=== PATIENT | female | born 1955 | race Caucasian/White ===

== ENCOUNTER → 2019-12-07 15:39 | Outpatient (BNVA) | payer MEDICARE, MEDICAID, SELFPAY | PROVIDERS: Family Provider Family Medicine; PCP Family Medicine; Visit Provider Nurse Practitioner Family | DX: M25.562 Pain in left knee (principal) | CPT/HCPCS: 73562 ==

== ENCOUNTER 2020-04-04 12:27 | Outpatient (CLI) | payer MEDICARE, MEDICAID, SELFPAY ==
--- NOTE | 2020-04-04 12:37 | MR_ITS ---
WS: [id number] MRI LEFT KNEE HISTORY: PAIN COMPARISON: Radiographs 12/07/2019. Anterior cruciate ligament: Intact. Posterior cruciate ligament: Intact. Medial collateral ligament: Fluid like signal on both sides of the distal MCL consistent with moderat e sprain. No full-thickness tear. Posterior lateral corner structures: Intact. Medial menisci: Fraying along the articular surfaces. There is blunting and abnormal signal towards t he meniscal root at the free edge. Partial extrusion of the anterior horn. Lateral meniscus: Blunting of the free edge with an abnormal signal consistent with a torn meniscus. Extensor mechanism: Distal quadriceps tendon and patellar tendons are intact. Fluid and soft tissue: There is a moderate joint effusion. Suprapatellar effusion with fluid extendin g around the posterior femoral condyles. Moderate Faust's cyst. Osseous and articular structures: Patellofemoral compartment: Mild joint space narrowing with preservation of the cartilage. Medial compartment: Moderate narrowing of the medial compartment. Moderate loss of cartilage with ost eophytes extending from the medial tibial plateau and femoral condyle. There is a small amount of mar row edema in the medial tibial plateau and the femoral condyle. Lateral compartment: Mild narrowing of the lateral compartment. There is a cartilage defect in the adeline int space involving the femoral cartilage. This is at the site of the meniscal signal abnormality als o. MR/MR knee LT wo con* [id number] IMPRESSION: 1. Moderate MCL sprain with adjacent fluid. There is also adjacent marrow bentley a in the femoral condyle and tibial plateau with meniscal extrusion. 2. Moderate joint effusion and Faust's cyst. 3. Abnormal signal blunting involving the free edge is a posterior menisci. 4. Significant loss of cartilage in the medial knee with a focal cartilage def ect in the lateral femoral condyle.
== END 2020-04-04 12:28 | disposition home or self-care (01) ==
LOC: RADWPI 12:34
PROVIDERS: Family Provider Family Medicine; PCP Family Medicine; Visit Provider Orthopaedic Surgery
DX: M25.562 Pain in left knee (principal); S83.412A Sprain of medial collateral ligament of left knee, initial encounter; X58.XXXA Exposure to other specified factors, initial encounter; M71.22 Synovial cyst of popliteal space [Baker], left knee; M25.462 Effusion, left knee
CPT/HCPCS: 73721

== ENCOUNTER 2020-04-23 06:00 | Outpatient (RCR) | payer MEDICARE, MEDICAID, SELFPAY | END 2020-04-30 23:59 | disposition home or self-care (01) | LOC: GPT 06:00 | PROVIDERS: PCP Family Medicine; Referring Provider Orthopaedic Surgery; Visit Provider Orthopaedic Surgery | DX: M17.12 Unilateral primary osteoarthritis, left knee (principal) | CPT/HCPCS: 97032; 97110; 97161; 97530 ==

== ENCOUNTER 2020-05-01 06:00 | Outpatient (RCR) | payer MEDICARE, MEDICAID, SELFPAY | END 2020-05-31 23:59 | disposition home or self-care (01) | LOC: GPT 06:00 | PROVIDERS: PCP Family Medicine; Referring Provider Orthopaedic Surgery; Visit Provider Orthopaedic Surgery | DX: M17.12 Unilateral primary osteoarthritis, left knee (principal) | CPT/HCPCS: 97032; 97110; 97116; 97530; G0283 ==

== ENCOUNTER → 2021-02-11 16:07 | Outpatient (BNVA) | payer MEDICARE, MEDICAID, SELFPAY | PROVIDERS: PCP Family Medicine; Visit Provider Orthopaedic Surgery | DX: Z01.812 Encounter for preprocedural laboratory examination (principal); Z20.822 Contact with and (suspected) exposure to COVID-19 | CPT/HCPCS: 87635 ==

== ENCOUNTER 2021-02-17 09:21 | Observation (INO) | payer MEDICARE, MEDICAID, SELFPAY ==
[2021-01-31 12:51] VITALS: BMI 24.1
--- NOTE | 2021-01-31 13:27 | ANES.PREANE2 ---
Pre-Anesthetic Assessment Pre-Anesthetic Assessment: Height/Weight: Height 1.55 m Weight 58.06 kg Preop Diagnosis: Osteoarthritis left knee Proposed Procedure: Operation Date: 02/17/21 07:00 Proposed Procedures p left total knee arthroplasty 75415 m17.12(Left) - Migel Wilkins MD Familial anesthetic complications: nonne Social: Social History: No alcohol and No tobacco Comment: former smoker Exam: Pre-Anes Outpt Exam: alert, oriented x 3, clear to auscultation bilaterally and regular rate & rhythm Airway: Cervical ROM: WNL MP: 3 Dentition: False Anesthetic Plan: ASA status: 1 Anesthesia: MAC and Regional (specify below) (spinal + adductor) Risk of > 500 ml blood loss (7ml/kg in children): No PFSH Anesthesia PFSH: Social History Smoking and tobacco status: former smoker Quit status (tobacco): has quit using tobacco Year quit tobacco: 2018 Alcohol intake: never Data Anesthesia Cardiac Studies: No Data to Display
[2021-02-17] VITALS (15 sets, daily range): BP systolic 107–151; BP diastolic 68–94; PULSE 58–85; RESP 14–19; TEMP 36.3–37.1; O2SAT 90–99
[2021-02-17] MEDS: sodium chloride 0.9% 1,000 ML 30 ML IV (06:07)
[2021-02-17] MEDS: acetaminophen 500 mg Tablet 1000 MG PO ×3 (06:08→21:24)
--- NOTE | 2021-02-17 06:30 | P.ANESUD_ITS ---
Pre-Anesthetic Update Pre-Anesthetic Assessment: Date of Surgery/Procedure: 02/17/21 Preop Sandrine gnosis: Osteoarthritis left knee Proposed Procedure: Operation Date: 02/17/21 07:00 Proposed Procedures p left total knee arthroplasty 25824 m17.12(Left) - Migel Wilkins MD Any changes to Pre-Anesthetic Assessment?: No Last Intake: Intake Last Liquid Date 02/16/21 Last Liquid Time 23:00 Last Solid Date 02/16/21 Last Solid Time 23:00 Vitals: Temperature 97.8 F 02/17/21 05:53 Temperature Source Temporal Artery S can 02/17/21 05:53 Pulse Rate 75 02/17/21 05:53 Respiratory Rate 16 02/17/21 05:53 Blood Pressure 151/94 02/17/21 05:53 Blood Pressure Ronel n 113 02/17/21 05:53 Pulse Oximetry 96 02/17/21 05:53 Oxygen Delivery Me thod 02/17/21 05:53 Exam: Pre-Anes Outpt Exam: alert, oriented x 3, clear to auscultation bilaterally and regular rate & rhythm Other Pertinent Information: Other Pertinent Information: GA with adductor. Cardiac Studies: No Data to Display
[2021-02-17] MEDS: ketorolac 30 mg/mL INJ PO (07:12)
[2021-02-17] MEDS: tranexamic acid 1,000 mg/10mL SDV 1000 MG IRRIGATION (07:12)
--- NOTE | 2021-02-17 07:13 | P.HP_ITS ---
Same Day Surgery H&P Indication for Procedure/HPI DATE OF PROCEDURE: February 17, 2021 CHIEF COMPLAINT/INDICATIONFOR SURGICAL PROCEDURE: Osteoarthritis left knee here for total knee arthroplasty PREOP DIAGNOSIS: Osteoarthritis left knee PLANNED PROCEDRUE: Operation Date: 02/17/21 07:00 Proposed Procedures p left total knee arthroplasty 18579 m17.12(Left) - Migel Wilkins MD Medications/Allergies* Home Medications Medication Instructions Recorded Confirmed Type acetaminophen [Tylenol] 325 mg PO QID PRN 01/31/21 02/17/21 History Allergies/Adverse Reactions Allergy/AdvReac Type Severity Reaction Status Date / Time codeine Allergy ADR-Vomitin Verified 01/07/21 13:15 g Current Medications: Generic Name Dose Route Start Last Admin Trade Name Freq PRN Reason Stop Dose Admin Sodium Chloride 1,000 mls @ 30 mls/hr 02/17/21 05:45 02/17/21 06:07 Sodium Chloride 0.9% IV 02/18/21 05:44 30 mls/hr .Q24H MARCIAL Administration Pertinent History/Comorbid Conditions* Social History Smoking and tobacco status: former smoker Quit status (tobacco): has quit using tobacco Year quit tobacco: 2018 Alcohol intake: never Pertinent Exam Findings alert, oriented x 3, clear to auscultation bilaterally, regular rate & rhythm and operative site marked Recommendations Surgery/Procedure today Coding Level of Care Code Acute Transfer Controller for Shira Delgado
--- NOTE | 2021-02-17 07:33 | ANES.PROC ---
Anesthesia Procedures Procedure/Date: 02/17/21 Nerve Block ^: Nerve Block 1: Main Anesthesia: general anesthesia Time Out Performed: Yes Consent: requested by attending/covering physician, from patient, risks and benefits reviewed and patient agrees to proceed Nerve block location: adductor canal (left) Anesthesia monitors applied: pulse oximetry, EKG, BP cuff and oxygen Nerve block position: supine Anesthetic Used: ropivicaine 0.5% Amount of anesthesia used (mL): 20 Nerve Stimulator Used?: No Interscalene/Femoral BLK: 4 stimuplex 21 g needle used for position and inplane approach Injection: neg aspiration of heme Patient Tolerated Procedure: well Complications: none
[2021-02-17] MEDS: EPINEPHrine 1 mg/mL INJ XX (07:42)
[2021-02-17] MEDS: ketorolac 30 mg/mL INJ XX (07:42)
[2021-02-17] MEDS: EPINEPHrine 1 mg/mL INJ (08:20)
--- NOTE | 2021-02-17 08:52 | PM.OP ---
Operative Report Date of procedure: February 17, 2021 Pre-op Diagnosis: Osteoarthritis left knee Post-op diagnosis: same Post-op Findings: Same Procedure Done: Left total knee arthroplasty Implants: Srini total knee arthroplasty components were used includin) Size 2 triathalon cruciate retaining femoral component 2) Size 3 Tritanium tibial component 3) Size 3/13 mm thickness CR tibial bearing insert Pathology: none sent Surgeon: Migel Wilkins Anesthesia: General and Nerve Block (Adductor elbow) Estimated blood loss (mL): 200 Complications: None Findings: Patient had eburnated bone over the medial femoral condyle and medial tibial plateau Condition: stable Disposition: PACU Procedure: The patient was taken to the operating room. Patient was given 1 g of tranexamic acid . The above anesthesia provided by the anesthesia service. A timeout was performed. The patient was prepped and draped in the usual fashion with the lower extremity exposed. A anterior incision was made, midline, from a point proximal to the patella to the distal tibial tubercle. The knee was entered through a medial parapatellar approach. The patella could be displaced laterally and the knee flexed. The patellar fat pad was resected to provide better visibility. Retractors were placed medially and laterally adjacent to the tibial plateau. The femoral canal was drilled in line with the longitudinal axis of the femur. Intramedullary femoral guide for used to make a distal femoral cut in 5 degrees of valgus, resecting 8 mm from the more prominent condyle. Next the extra medullary tibial guide was placed in alignment with the longitudinal axis of the tibia. The cutting guides were set to remove just over 9 mm from the high tibial plateau. The proximal tibia was then cut. The femoral measuring guide was then placed over the distal femur. Rotation was verified checking the relationship of the guide to the condyle and the trochlear groove. The femur was measured and cut for the desired femoral component. The desired tibial baseplate was then chosen. A trial reduction with the femur tibial baseplate and polyethylene was done, assuring that the knee was stable throughout full motion. Ligament balancing involve release of nothing more than the deep medial collateral ligament.The tibia was prepared for the tibial baseplate. Patella revealed no significant chondromalacia and articulated well with the femur through range of motion and was not resurface. All surfaces were cleaned with pulsatile lavage. The femur tibia were then press-fit into place. The posterior capsule and collateral ligaments were then injected with a solution of 100 mL of 0.2% ropivacaine, 1 mL of a 1:1000 epinephrine solution, and 30 mg of Toradol. Final polyethylene component was then snapped into place into the tibia. 2 grams of tranexamic acid were applied to the wound. The tourniquet was deflated. The tranxanemic acid was left contact with the knee for 5 minutes before the knee was irrigated with saline. The extensor retinaculum was closed with a running 1 Stratafix.. The subcutaneous tissues were closed with 2-0 Vicryl and the skin was closed with a running 3-0 Stratafix. The wound was covered with a Dermabond Prinio dressing. It was covered with 4xrs and a compressive Tubigauae was applied. The patient was taken to recovery room in stable condition.
--- NOTE | 2021-02-17 08:58 | XRR_ITS ---
PROCEDURE INFORMATION: Exam: XR Left Knee Exam date and time: 02/17/2021 9:02 AM Age: 65 years old Clinical indication: Device placement; Joint replacement hardware; Prior surgery; Surgery date: Post-operative (0-2 days); Additional info: Left total knee arthroplasty TECHNIQUE: Imaging protocol: XR Left knee. Views: 1 or 2 views. COMPARISON: MR knee LT wo con* [id number] 04/04/2020 12:33 PM FINDINGS: Bones/joints: No fracture or dislocation. The patient is status post left total knee arthroplasty. No evidence of hardware related complication. Soft tissues: Expected postoperative soft tissue changes noted. XR/XR knee LT 1-2V [id number] IMPRESSION: Status post left total knee arthroplasty, without evidence of hardware related complication.
--- NOTE | 2021-02-17 10:01 | SUR.PHASEI ---
0927 pt sleeps without complaint awaes to voice , pt shakes head no to pain and nausea questions pt shakes head yes to being cold, warm blankets to pt , pt to floor per bed after x rays done, vss report called to floor.
[2021-02-17] MEDS: CELEcoxib 200 mg Capsule PO ×2 (11:25→21:24)
[2021-02-17] MEDS: gabapentin 300 mg Capsule PO ×2 (11:25→17:49)
[2021-02-17] MEDS: aspirin 325 mg EC Tablet PO (11:25)
[2021-02-17] MEDS: sodium chloride 0.9% 1,000 ML 100 ML IV (11:26)
--- NOTE | 2021-02-17 15:41 | ANE.PACU2 ---
Inpatient post-anesthesia follow up: Airway intact: Yes Vital signs: Temperature 98.7 F Pulse Rate 71 Respiratory Rate 17 Blood Pressure 128/86 Pulse Oximetry 94 Oxygen Delivery Me thod Room Air Oxygen Flow Rate 3 Fraction of Inspir ed Oxygen Hydration adequate: Yes Nausea and vomiting: No Pain level: 3 Mental status: Baseline
[2021-02-18] VITALS: BP 97/60; PULSE 74; RESP 16; TEMP 37.9; O2SAT 94
[2021-02-18] MEDS: sodium chloride 0.9% 1,000 ML 100 ML IV (02:33)
[2021-02-18 04:00] VITALS: BP 99/58; PULSE 66; RESP 17; TEMP 37.2; O2SAT 92
[2021-02-18] MEDS: acetaminophen 500 mg Tablet 1000 MG PO ×2 (06:31→14:47)
[2021-02-18 07:22] LABS: Hemoglobin 10.4 g/dL (11.5-15.3)
[2021-02-18 08:00] VITALS: BP 110/65; PULSE 56; RESP 18; TEMP 37.1; O2SAT 94
[2021-02-18 09:15] VITALS: RESP 18
[2021-02-18] MEDS: oxyCODONE 5 mg IR Tab/Cap PO (09:15)
[2021-02-18] MEDS: aspirin 325 mg EC Tablet PO (09:16)
[2021-02-18] MEDS: gabapentin 300 mg Capsule PO (09:16)
[2021-02-18] MEDS: CELEcoxib 200 mg Capsule PO (09:16)
[2021-02-18 11:45] VITALS: BP 134/78; PULSE 64; RESP 18; TEMP 37; O2SAT 94
--- NOTE | 2021-02-18 13:06 | P.DS_ITS ---
Discharge Providers Date of Admission: 02/17/21 09:21 Date of Discharge: February 18, 2021 Attending Provider at Admission: Migel Wilkins MD Attending Provider at Discharge: Migel Wilkins MD Primary Care Provider: Alexis Good DO Diagnoses at Discharge Discharge Diagnosis (1) Status post left knee replacement: Status: Acute (2) Osteoarthritis of left knee: Status: Resolved Reason for Visit Reason for Visit: left total knee arthroplasty 55728 Hospital Course Hospital Course The patient was admitted for elective left total knee arthroplasty. Postoperatively she did very well. By the first postoperative day she was independent with her walker. She was managed with aspirin and foot pumps for DVT prophylaxis. She remained hemodynamically stable. Her incision was clean and free of drainage. Physical Exam Narrative: EXAM NARRATIVE: On the day of discharge his knee incision was clean. They had no drainage. There is minimal swelling in the thigh and knee and the calf. No distal neurovascular deficits were noted Discharge Data Data Completed and Pending: Completed Studies During Hospitalization Category Date Time Status XR knee LT 1-2V 7 [id number] Routine Exams 02/17/21 08:58 Completed Labs from last 24 hours 02/18/21 07:16 Hgb 10.4 L Vitals: Last Vital Signs Temp 98.6 F 02/18/21 11:45 Pulse 64 02/18/21 11:45 Resp 18 02/18/21 11:45 BP 134/78 02/18/21 11:45 Pulse Ox 94 02/18/21 11:45 Discharge Plan Discharge Patient Disposition: Home Condition: Stable Prescriptions: New oxycodone 5 mg Tablet 5 mg PO Q4H PRN (Reason: Moderate Pain) 7 Days Qty: 40 RF: 0 aspirin 325 mg Tablet,Delayed Release (Dr/Ec) 325 mg PO DAILY 30 Days Qty: 30 RF: 0 acetaminophen 500 mg Tablet 1,000 mg PO Q8H 14 Days Qty: 84 RF: 0 celecoxib 200 mg Capsule 200 mg PO Q12H 14 Days Qty: 28 RF: 0 gabapentin 300 mg Capsule 300 mg PO BID 7 Days Qty: 14 RF: 0 No Action acetaminophen [Tylenol] 325 mg Capsule 325 mg PO QID PRN (Reason: Pain) RF: 0 Discharge Orders: Discharge Order (Routine); Ordered 02/18/21 Ordered By: Migel Wilkins Other Ambulatory Orders: DME: Walker (Order) Location: None Selected Ordered By: Migel Wilkins Referrals: [facility] [place] Home Care ([facility]) [Outside] Migel Wilkins MD [Physician] - 03/04/21 10:45 am Discharge Diet: Advance as tolerated Discharge Activity: Limit activity as instructed Patient Instructions: Aspirin (By mouth), Gabapentin (By mouth), Oxycodone, Rapid Release (By mouth), Celecoxib (By mouth), Total Knee Replacement (DC), Opioid Safety Activity Restrictions/Additional Instructions: Okay to shower Keep Tubigauze sleeve in place for swelling. Okay to remove for hygiene. Apply FirstIce up to 20 min/hr for pain and swelling Take Celebrex twice a day for the next 15 days for pain , discontinue other anti-inflammatories Take Neurontin twice a day for 7 days. Take Tylenol 500mg (1-2 tabs) as needed 3 times a day for mild pain take oxycodone for breakthrough pain. Exercises per physical therapy. May weight-bear as tolerated on total knee arthroplasty Discharge Attestations Time Spent in Discharge Care*: other Quality Metrics Clinical Quality Measures During this hospital stay, did patient experience: None Coding Level of Care Code Acute [facility] DC note Diagnoses Status post left knee replacement Z96.652 Osteoarthritis of left knee M17.12
--- NOTE | 2021-02-18 15:33 | PC.NURSE ---
pt given discharge instructions, iv removed, and all questions answered. pt was informed on how to contact nurse if any questions arise.
[2021-02-18 15:56] VITALS: BP 134/78; PULSE 64; RESP 18; TEMP 37; O2SAT 94
== END 2021-02-18 15:30 | disposition home or self-care (01) ==
LOC: MEDSURG 09:22
PROVIDERS: Admitting Provider Orthopaedic Surgery; PCP Family Medicine; Visit Provider Orthopaedic Surgery
PROC: (CPT 27447; principal; 2021-02-17 07:00)
DX: M17.12 Unilateral primary osteoarthritis, left knee (principal); Z87.891 Personal history of nicotine dependence
CPT/HCPCS: 27447; 36415; 64447; 73560; 76942; 85018; 97110; 97116; 97161; 97165; 97530; 97535; C1776; G0378; J0171; J0690; J1100; J1200; J1580; J1885; J2370; J2405; J2704; J2710; J2795; J3010; J3490; J7030

== ENCOUNTER 2021-03-05 06:00 | Outpatient (RCR) | payer MEDICARE, MEDICAID, SELFPAY | END 2021-03-31 23:59 | disposition home or self-care (01) | LOC: GPT 06:00 | PROVIDERS: PCP Family Medicine; Referring Provider Orthopaedic Surgery; Visit Provider Orthopaedic Surgery | DX: Z47.89 Encounter for other orthopedic aftercare (principal) | CPT/HCPCS: 97032; 97110; 97112; 97116; 97140; 97161; 97530 ==

== ENCOUNTER 2021-04-01 06:00 | Outpatient (RCR) | payer MEDICARE, MEDICAID, SELFPAY | END 2021-04-30 23:59 | disposition home or self-care (01) | LOC: GPT 06:00 | PROVIDERS: PCP Family Medicine; Referring Provider Orthopaedic Surgery; Visit Provider Orthopaedic Surgery | DX: Z47.1 Aftercare following joint replacement surgery (principal); Z96.652 Presence of left artificial knee joint | CPT/HCPCS: 97110; 97530 ==

== ENCOUNTER → 2021-04-08 14:53 | Outpatient (BNVA) | payer MEDICARE, MEDICAID, SELFPAY | PROVIDERS: PCP Family Medicine; Visit Provider Orthopaedic Surgery | DX: Z47.1 Aftercare following joint replacement surgery; Z96.652 Presence of left artificial knee joint | CPT/HCPCS: 73560; 73565 ==

== ENCOUNTER 2024-12-28 11:56 | Observation (INO) | payer MEDICARE, MEDICAID, SELFPAY ==
[2024-12-28] VITALS (10 sets, daily range): BP systolic 108–127; BP diastolic 64–81; PULSE 74–89; RESP 16–26; TEMP 36.5–37.2; O2SAT 91–98; BMI 24.0; BMI 23.3
--- NOTE | 2024-12-28 12:13 | ECG_ITS ---
[facility] Date: 2024-12-28 Pat Name: Stefanie Taylor Department: Room: Gender: Female Mathematical Sciences Professor: : 1955 Requested By: Selene Jorge Order Number: [id number] MD: Dg Thakkar M.D. Measurements Intervals [place] Rate: 83 P: 42 CT: 137 QRS: 69 QRSD: 81 T: 57 QT: 382 QTc: 450 Interpretive Statements SINUS RHYTHM WITH FREQUENT SUPRAVENTRICULAR PREMATURE COMPLEXES NONSPECIFIC T-WAVE ABNORMALITY No previous ECG available for comparison Electronically Signed On 12-30-2024 07:52:31 MEMBER CERTIFICATION MANAGER by Dg Thakkar M.D. [email or web address]
--- NOTE | 2024-12-28 12:14 | XR_ITS ---
WS: [id number] Portable AP semiupright chest, 12/28/2024 Clinical Data: syncop[e Comparison: None. Findings: No nodules, masses or effusions are seen. The heart is normal. The pulmonary vascularity is not increased. No pneumonia or pneumothorax is seen. The aortic arch shows mild tortuosity. There are small calcified granulomas throughout both lungs. There are monitor leads on the upper abdominal wall. XR/XR chest 1V portable [id number] Impression: Atherosclerosis and old granulomatous disease.
[2024-12-28 12:19] LABS: Glucose Point of Care 131 mg/dL (70-110)
--- NOTE | 2024-12-28 12:25 | CT_ITS ---
WS: [id number] CT HEAD TECHNIQUE: Noncontrast CT of the head obtained from the skullbase to the vertex. CLINICAL INFORMATION: fall COMPARISON: None. DLP: 2330.[address] scans at [facility] use at least one of these dose optimization techniques: automated exposure control; mA and/or kV adjustment per patient size (includes targeted exams where dose is matched to clinical indication); or iterative reconstruction. FINDINGS: No evidence of intracranial hemorrhage or mass effect. Ventricular system and basal cisterns are patent. Moderate small vessel changes with moderate parenchymal volume loss. No extra-axial fluid collections. No evidence of mass or mass effect. Vascular calcification. Diffuse pansinusitis with air-fluid levels. Partial opacification of the RIGHT mastoid air cells. LEFT mastoid air cells are well aerated. CT/CT head wo con* [id number] IMPRESSION: 1. No evidence of intracranial hemorrhage or mass effect. 2. Diffuse pansinusitis with air-fluid levels. 3. No acute intracranial findings.
--- NOTE | 2024-12-28 12:25 | CT_ITS ---
WS: [id number] CT CERVICAL TRAUMA TECHNIQUE: Noncontrast CT of the cervical spine with coronal and sagittal reformatted images. CLINICAL INFORMATION: fall COMPARISON: None. DLP: 2330.[address] scans at [facility] use at least one of these dose optimization techniques: automated exposure control; mA and/or kV adjustment per patient size (includes targeted exams where dose is matched to clinical indication); or iterative reconstruction. FINDINGS: Straightening of the normal cervical lordosis. Moderate spondylitic changes. Disc osteophyte complexes at C3-C4 and C4-C5 with mild central canal stenosis. Normal craniocervical junction. Hypertrophic changes C1-C2 articulation. Dens is normal in appearance. Normal occipital condyles. Normal C1 ring. No evidence of acute fracture or dislocation. Normal prevertebral soft tissues. Diffuse paranasal sinusitis. Partial opacification RIGHT mastoid air cells. A few tiny thyroid nodules. Vascular calcification. CT/CT cervical spin wo con* [id number] IMPRESSION: No evidence of acute fracture or dislocation.
--- NOTE | 2024-12-28 12:25 | CT_ITS ---
WS: [id number] CTA CHEST FOLLOWED BY ABDOMEN AND PELVIS TECHNIQUE: Contrast enhanced CTA of the chest, abdomen, and pelvis with coronal and sagittal reformatted images and additional MIP Images. CLINICAL INFORMATION: sob, abd pain COMPARISON: None. DLP: 2330.[address] scans at [facility] use at least one of these dose optimization techniques: automated exposure control; mA and/or kV adjustment per patient size (includes targeted exams where dose is matched to clinical indication); or iterative reconstruction. FINDINGS: Aneurysmal ascending thoracic aorta measuring 3.7 cm. Proximal main pulmonary arteries are patent. Normal caliber descending thoracic aorta. Aortic calcification. Coronary calcification. Chronic emphysematous changes. Calcified granulomas. Fibrotic changes with bibasilar atelectasis. Patchy focal infiltrate in the RIGHT upper lobe anteriorly retrosternal in location. Mild thoracic curve. Mild thoracic kyphosis. Fatty liver. Mild hepatomegaly. Normal spleen. Cholecystectomy clips. Normal portal vein and splenic vein. Normal pancreatic parenchymal enhancement. Normal GE junction. Adrenal glands are normal. Normal renal parenchymal enhancement. No hydronephrosis. Celiac and SMA are patent. Normal caliber abdominal aorta. Aortic calcification. Urine distended bladder. Prior hysterectomy. Normal sigmoid colon. Mild fecal retention in the transverse colon. No evidence of hepatic or splenic laceration. Mild chronic appearing anterior wedging L3. CT/CT angio chest w abd pel w con IMPRESSION: 1. Aneurysmal ascending thoracic aorta measuring 3.7 cm. 2. Proximal main pulmonary arteries are normal. 3. Small focal infiltrate in the RIGHT upper lobe anteriorly retrosternal like ly infectious or inflammatory. 4. Moderate chronic emphysematous changes with bibasilar atelectasis and fibro tic changes. 5. No acute traumatic findings in the abdomen or pelvis. 6. Urine distended bladder. 7. Prior hysterectomy. 8. Prior cholecystectomy.
[2024-12-28 12:32] LABS: Basophils % 0.2 %; Hematocrit 40.4 % (36-47); Lymphocytes # 0.8 10^3/uL (0.8-4.8); Lymphocytes % 4.3 %; Mean Corpuscular HGB Conc 34.9 g/dL (30-55); Mean Corpuscular Hemoglobin 32.3 pg (27-33); Mean Corpuscular Volume 92.7 fl (85-98); Mean Platelet Volume 10.5 fL (7.4-10.4); Monocytes # 1.3 10^3/uL (0.2-0.9); Monocytes % 7.1 %; Neutrophils # 15.94 10^3/uL (1.8-7.7); Neutrophils % 87.8 %; Nucleated Red Blood Cells % 0 %; Platelet Count 170 10^3/cmm (157-399); Red Blood Count 4.36 10^6/uL (3.85-5.65); Red Cell Distribution Width 12.5 % (12.1-15.1); White Blood Count 18.15 10^3/uL (3.29-11.43)
--- NOTE | 2024-12-28 12:36 | W.ED.SYNCOPE ---
HPI - Syncope General: Chief Complaint: Syncope Stated Complaint: flu like symptoms, syncopal ep Time Seen by Provider: 12/28/24 12:12 Source: patient Mode of arrival: ambulatory Limitations: no limitations History of Present Illness: 69-year-old female who states she has not been feeling well over the last 2 weeks. She states that she has had cough congestion she also been having some abdominal pain and she had had vomiting today. Patient had a syncopal event today after vomiting she states she did hit her head on the floor has a slight headache family states she is just been weaker than normal and having some lethargy as well patient is answering my questions here appropriately she states she is just felt weak and sick. Associated symptoms: Reports abdominal pain and nausea; Deny chest pain, fever(s) or headache(s) Related Data Home Medications ?Medication ?Instructions ?Recorded ?Confirmed dapagliflozin propanediol 10 mg 10 mg PO QAM 12/28/24 12/28/24 tablet (Farxiga) glimepiride 2 mg tablet 3 mg PO DAILY 12/28/24 12/28/24 metformin 500 mg tablet 500 mg PO BID 12/28/24 12/28/24 pravastatin 10 mg tablet 10 mg PO DAILY 12/28/24 12/28/24 Allergies Allergy/AdvReac Type Severity Reaction Status Date / Time codeine Allergy ADR-Vomitin Verified 12/28/24 12:09 g Review of Systems Const: Denies: fever(s), chills, body aches or change in appetite ENMT: Denies: throat pain or dental pain Card: Denies: chest pain Resp: Reports: dyspnea and non-productive cough GI: Reports: abdominal pain, nausea and vomiting; Denies: diarrhea Musc: Denies: neck pain or back pain Skin/Breast: Denies: rash Neuro: Denies: headache(s) PFSH ED PFSH: Social History Smoking and tobacco/nicotine status: former use of tobacco/nicotine Quit status (tobacco/nicotine): has quit using Year quit tobacco: 2018 Alcohol intake: never Substance/Drug Use: never Physical Exam Const: COMMON NORMALS: no acute distress, patient oriented x3 and healthy appearing HENMT: COMMON NORMALS: normocephalic HEAD & SCALP: normocephalic OTHER: hematoma right scalp Neck/C-Spine: COMMON NORMALS: full ROM and supple Chest: COMMONS NORMALS: normal inspection of the chest Resp: COMMON NORMALS: normal respiratory effort, No retractions, No use of accessory muscles and clear to auscultation bilaterally AUSCULTATION: clear to auscultation bilaterally Cardio: COMMON NORMALS: regular rate, regular rhythm and No murmurs present (Cardio) RATE: regular rate RHYTHM: regular rhythm GI: COMMON NORMALS: Normal to inspection, nondistended, normoactive bowel sounds present, Soft to palpation, non-tender and no masses PALPATION: Yes Soft to palpation Extremity: COMMON NORMALS: normal to inspection and full ROM Neuro: COMMON NORMALS: patient oriented x3, moves all extremities and no focal motor deficits Psych: COMMON NORMALS: mental status grossly normal, Normal thought process present and cooperative THOUGHT PROCESS: Normal thought process present Skin: COMMON NORMALS: no rashes or lesions noted and no wounds GENERAL SKIN EXAM: no rashes or lesions noted Course Vital Signs: Vital signs: Vital Signs Temperature 98.9 F 12/28/24 11:57 Pulse Rate 80 12/28/24 14:13 Respiratory Rate 18 12/28/24 14:13 Blood Pressure 110/64 12/28/24 14:13 Pulse Oximetry 97 12/28/24 14:13 Oxygen Delivery Me thod Room Air 12/28/24 14:13 MDM - Syncope Medical Decision Making Patient presents here with generalized weakness she had a syncopal event today was not able to stand due to being weak did hit her head head CT is normal she has had an increasing cough CT shows pneumonia spoke to hospitalist will admit on IV antibiotics. Medical Records I reviewed the patient's medical records. Lab Data I reviewed the patient's lab results. 12/28/24 12:25 12/28/24 12:25 Radiology Impressions Chest X-Ray 12/28/24 12:14 Impression: Atherosclerosis and old granulomatous disease. Cervical Spine CT 12/28/24 12:25 IMPRESSION: No evidence of acute fracture or dislocation. Chest/Abdomen/Pelvis CT 12/28/24 12:25 IMPRESSION: 1. Aneurysmal ascending thoracic aorta measuring 3.7 cm. 2. Proximal main pulmonary arteries are normal. 3. Small focal infiltrate in the RIGHT upper lobe anteriorly retrosternal likely infectious or inflammatory. 4. Moderate chronic emphysematous changes with bibasilar atelectasis and fibrotic changes. 5. No acute traumatic findings in the abdomen or pelvis. 6. Urine distended bladder. 7. Prior hysterectomy. 8. Prior cholecystectomy. Head CT 12/28/24 12:25 IMPRESSION: 1. No evidence of intracranial hemorrhage or mass effect. 2. Diffuse pansinusitis with air-fluid levels. 3. No acute intracranial findings. Laboratory Results WBC 18.15 10^3/uL (3.29-11.43) H 12/28/24 12:25 RBC 4.36 10^6/uL (3.85-5.65) 12/28/24 12:25 Hgb 14.10 g/dL (11.27-16.99) 12/28/24 12:25 Hct 40.4 % (36-47) 12/28/24 12:25 MCV 92.7 fl (85-98) 12/28/24 12:25 MCH 32.3 pg (27-33) 12/28/24 12:25 MCHC 34.9 g/dL (30-55) 12/28/24 12:25 RDW 12.5 % (12.1-15.1) 12/28/24 12:25 Plt Count 170 10^3/cmm (157-399) 12/28/24 12:25 MPV 10.5 fL (7.4-10.4) H 12/28/24 12:25 Neut % (Auto) 87.8 % 12/28/24 12:25 Lymph % (Auto) 4.3 % 12/28/24 12:25 Grady % (Auto) 7.1 % 12/28/24 12:25 Eos % (Auto) 0.0 % 12/28/24 12:25 Baso % (Auto) 0.2 % 12/28/24 12:25 Neut # (Auto) 15.94 10^3/uL (1.8-7.7) H 12/28/24 12:25 Lymph # (Auto) 0.8 10^3/uL (0.8-4.8) 12/28/24 12:25 Grady # (Auto) 1.3 10^3/uL (0.2-0.9) H 12/28/24 12:25 Eos # (Auto) 0.0 10^3/uL (0.0-0.8) 12/28/24 12:25 Baso # (Auto) 0.0 10^3/uL (0.0-0.1) 12/28/24 12:25 Nucleated RBC % (auto) 0 % 12/28/24 12:25 Nucleated RBCs # 0.0 /100WBC 12/28/24 12:25 Sodium 134 mmol/L (136-145) L 12/28/24 12:25 Potassium 3.9 mmol/L (3.5-5.1) 12/28/24 12:25 Chloride 101 mmol/L (98-107) 12/28/24 12:25 Carbon Dioxide 21 mmol/L (22-29) L 12/28/24 12:25 Anion Gap 15.9 (5-19) 12/28/24 12:25 BUN 19 mg/dL (8-23) 12/28/24 12:25 Creatinine 0.6 mg/dL (0.5-0.9) 12/28/24 12:25 GFR Calculation Not Reportable 12/28/24 12:25 Glucose 128 mg/dL (65-115) H 12/28/24 12:25 POC Glucose 131 mg/dL (70-110) H 12/28/24 12:12 Calculated Osmolality 282 mOsm/kg (285-295) L 12/28/24 12:25 Lactic Acid 0.8 mmol/L (0.5-2.2) 12/28/24 12:25 Calcium 8.9 mg/dL (8.5-10.5) 12/28/24 12:25 Total Bilirubin 0.7 mg/dL (0.15-1.2) 12/28/24 12:25 AST 14 U/L (0-32) 12/28/24 12:25 ALT 11 U/L (0-33) 12/28/24 12:25 Alkaline Phosphatase 74 U/L (35-105) 12/28/24 12:25 Total Protein 6.4 g/dL (6.6-8.7) L 12/28/24 12:25 Albumin 3.7 g/dL (3.5-5.2) 12/28/24 12:25 Globulin 2.7 g/dL (1.3-4.6) 12/28/24 12:25 Lipase 20 U/L (13-60) 12/28/24 12:25 Urine Color Yellow (Yellow) 12/28/24 14:08 Urine Appearance Clear (CLEAR) 12/28/24 14:08 Urine pH 7.5 (5-7) 12/28/24 14:08 Ur Specific [place] 1.018 (1.005-1.030) 12/28/24 14:08 Urine Protein Negative (Negative) 12/28/24 14:08 Urine Glucose (UA) Negative (Normal) 12/28/24 14:08 Urine Ketones Negative (Negative) 12/28/24 14:08 Urine Blood Negative (Negative) 12/28/24 14:08 Urine Nitrate Negative (Negative) 12/28/24 14:08 Urine Bilirubin Negative (Negative) 12/28/24 14:08 Urine Urobilinogen 0.2 mg/dL (Negative) 12/28/24 14:08 Ur Leukocyte Esterase Negative (Negative) 12/28/24 14:08 Amorphous Sediment Not Reportable 12/28/24 14:08 All radiology interpretation(s) finalized by discharge EKG Data EKG 1: I personally reviewed and interpreted this EKG as follows: EKG interpretation date: 12/28/24 EKG interpretation time: 12:13 Interpretation: nsr hr [address] elevation qrs 81 qtc 422 Discharge Plan Discharge Patient Disposition: Admitted As Inpatient Clinical Impression: Syncope, Weakness, Pneumonia Condition: Stable Prescriptions: No Action metformin 500 mg tablet 500 mg PO BID glimepiride 2 mg tablet 3 mg PO DAILY pravastatin 10 mg tablet 10 mg PO DAILY dapagliflozin propanediol [Farxiga] 10 mg tablet 10 mg PO QAM Referrals: Ibrahima Holloway, WORKGROUP LEADER [Primary Care Provider] - Print Language: Niuean Coding Level of Care Code ED Chucking Lathe Operator for Chg Sandy
[2024-12-28] MEDS: sodium chloride 0.9% 1,000 ML 999 ML IV (12:48)
[2024-12-28 12:52] LABS: Alanine Aminotransferase 11 U/L (0-33); Albumin Level 3.7 g/dL (3.5-5.2); Alkaline Phosphatase 74 U/L (35-105); Anion Gap 15.9 (5-19); Aspartate Amino Transferase 14 U/L (0-32); Blood Urea Nitrogen 19 mg/dL (8-23); Calcium 8.9 mg/dL (8.5-10.5); Carbon Dioxide 21 mmol/L (22-29); Chloride 101 mmol/L (98-107); Creatinine Clr Calc Pharmacy 52.6653; Globulin 2.7 g/dL (1.3-4.6); Glucose 128 mg/dL (65-115); Lactic Sepsis W/Reflex 0.8 mmol/L (0.5-2.2); Lipase 20 U/L (13-60); Osmolality Calculated 282 mOsm/kg (285-295); Potassium 3.9 mmol/L (3.5-5.1); Sodium 134 mmol/L (136-145); Total Bilirubin 0.7 mg/dL (0.15-1.2); Total Protein 6.4 g/dL (6.6-8.7)
[2024-12-28] MEDS: iohexol 350 mg/mL 500 mL Btl (per mL) IV (13:30)
[2024-12-28 14:15] LABS: Add Urine Microscopic? NO
[2024-12-28 14:17] LABS: Bilirubin Urine Negative (Negative); Blood Urine Negative (Negative); Glucose Urine UA Negative (Normal); Ketones Urine Negative (Negative); Leukocyte Esterase Urine Negative (Negative); Nitrate Urine Negative (Negative); Protein Urine Negative (Negative); Specific Gravity, Urine 1.018 (1.005-1.030); Urine Appearance Clear (CLEAR); Urine Color Yellow (Yellow); Urobilinogen Urine 0.2 mg/dL (Negative); pH Urine 7.5 (5-7)
--- NOTE | 2024-12-28 14:18 | PC.PHAR ---
Pt verified her home medications filled at [facility].
--- NOTE | 2024-12-28 14:25 | PC.PHAR ---
Pt stated she still takes Metformin 500mg bid last fill 02/16/24 30ds and Glimipride 2mg 1.5 tablets daily last fill 06/19/24 30ds. Verified with JOSE Baez these are the correct last dates pt filled.
[2024-12-28 14:54] LABS: Add Urine Culture? No
[2024-12-28 14:55] LABS: Charge for UA Resulting for Rev
--- NOTE | 2024-12-28 15:37 | PM.HP ---
Providers/Chief Complaint Primary Care Provider: WILIAN Thorpe Chief Complaint: flu like symptoms, syncopal ep History of Present Illness Stefanie Taylor is a 69 year old female with history of diabetes and hyperlipidemia otherwise healthy, former smoker presented to the hospital with worsening shortness of breath. She states that she has been sick for the last 3 weeks however today when she passed out family brought her into the hospital. She states she was quite lightheaded this morning however when went to the bathroom and as she was getting off the potty she had a syncopal episode. She says she heard a loud thud and may have hit her head or hit something else. She says she was then picked up by her neighbor. She states it hurts her chest every time she coughs. She has been coughing for last 3 weeks and trying to bring up phlegm however it is just not coming out. He states I feel it is stuck in my chest. She has also been having some loose stools once a day. No increased frequency and bowel movements. She says this all started off as a head cold and then it just became worse and worse and worse . Denies abdominal pain however does report mild nausea and vomiting overnight at 3 AM. She is not requiring oxygen and is on room air at this time. Medications/Allergies Home Medications ?Medication ?Instructions ?Recorded ?Confirmed ?Last Taken ?Type dapagliflozin propanediol 10 mg 10 mg PO QAM 12/28/24 12/28/24 12/28/24 History tablet (Farxiga) glimepiride 2 mg tablet 3 mg PO DAILY 12/28/24 12/28/24 12/28/24 History metformin 500 mg tablet 500 mg PO BID 12/28/24 12/28/24 12/28/24 History pravastatin 10 mg tablet 10 mg PO DAILY 12/28/24 12/28/24 12/28/24 History Allergies Allergy/AdvReac Type Severity Reaction Status Date / Time codeine Allergy ADR-Vomitin Verified 12/28/24 12:09 g PFSH Acute PFSH: Social History Smoking and tobacco/nicotine status: former use of tobacco/nicotine Quit status (tobacco/nicotine): has quit using Year quit tobacco: 2018 Alcohol intake: never Substance/Drug Use: never Vitals/I&O/Wt Last Vital Signs Temp 98.9 F 12/28/24 11:57 Pulse 80 12/28/24 14:13 Resp 18 12/28/24 14:13 BP 110/64 12/28/24 14:13 Pulse Ox 97 12/28/24 14:13 O2 Del Method Room Air 12/28/24 14:13 12/28/24 12/28/24 12/28/24 06:59 14:59 22:59 Intake Total 1000 / 1000 Balance 1000 / 1000 Weight last 48 hrs Weight 57.606 kg Physical Exam Narrative: General: Alert oriented x3, patient seen laying in bed coughing at this time. Frail-appearing appears ill. Appears to be dehydrated. HEENT: Normocephalic, atraumatic, EOMI, breathing room air. Cardio: Regular rate rhythm, normal S1-S2, Respiratory: Rhonchi bilaterally throughout from navarro along with wheezing. GI: Abdomen soft, nontender, bowel sounds + Behavior: Appropriate and cooperative Extremities: No edema bilateral lower extremity Data 12/29/24 04:16 12/29/24 04:16 A&P Assessment and plan (1) Pneumonia: (2) Syncope: (3) Weakness: (4) RSV (acute bronchiolitis due to respiratory syncytial virus): (5) Fall: (6) Dizziness: (7) Cough: (8) Frail elderly: (9) Dehydration: (10) Right upper lobe pneumonia: (11) Diabetes: (12) Type 2 diabetes mellitus: (13) Non-insulin dependent diabetes mellitus: (14) Goals of care, counseling/discussion: (15) Leukocytosis: Plan #RSV respiratory infection #Cough shortness of breath secondary to above #Pneumonia probably viral versus bacterial /right upper lobe pneumonia #Diabetes mellitus #Fall/syncope/lightheadedness/dizziness ? Patient noted to be positive for RSV on admission. Will provide supportive care. She appears dehydrated. Will order IV fluid at 75 cc/h normal saline ? CT head, cervical spine CT negative for acute pathology. ? Chest abdomen CT pelvis shows aneurysmal ascending thoracic aorta measuring 3.7 cm. ? Small focal infiltrate in right upper lobe anteriorly retrosternal likely infectious inflammatory. ? Placed on ceftriaxone, azithromycin ? DuoNeb every 6 hours scheduled ? Incentive spirometer, flutter valve to be ordered ? Urinalysis negative ? Steroids are controversial and generally not recommended in RSV infections we will hold off unless patient is hypoxic. -Will check CRP, ESR ? Check bacterial antigen strep and Legionella ? Check BNP ? Check procalcitonin ? Hold home glimepiride, metformin, Farxiga. ? Low-dose intensity sliding scale insulin to be ordered. ? Carbohydrate consistent diet ? Patient appeared dehydrated at time of admission. Possibly had a vasovagal episode after using the bathroom and was already lightheaded to begin with. CT head negative. Will check orthostatic vitals. ? Check PT OT Full code Due to prophylaxis Lovenox 40 daily PDMP PDMP Reviewed: Not Reviewed Attestations Medical Necessity Statement*: Greater than 2 midnight stay for RSV respiratory infection/viral pneumonia Diagnoses Pneumonia J18.9 Syncope R55 Weakness R53.1 RSV (acute bronchiolitis due to respiratory syncytial virus) J21.0 Fall W19.XXXA Dizziness R42 Cough R05.9 Frail elderly R54 Dehydration E86.0 Right upper lobe pneumonia J18.9 Diabetes E11.9 Type 2 diabetes mellitus E11.9 Non-insulin dependent diabetes mellitus Goals of care, counseling/discussion Z71.89 Leukocytosis D72.829
[2024-12-28] MEDS: cefTRIAXone 1,000 mg SDV 1000 MG IVP (15:43)
[2024-12-28] MEDS: AZITHROMYCIN ADD-Vantage 500 MG in 0.9% NaCl ADD-Vantage 250 ML 250 MG IV (15:46)
[2024-12-28] MEDS: sodium chloride 0.9% 1,000 ML 75 ML IV ×2 (15:53→18:46)
[2024-12-28] MEDS: enoxaparin 40 mg/0.4 mL Syringe SUBCUT (15:54)
[2024-12-28 16:02] LABS: Influenza A NEGATIVE (Negative); Influenza B NEGATIVE (Negative); SARS-CoV-2 PCR NEGATIVE (Negative)
[2024-12-28] MEDS: ipratropium-albuterol 3 mL Neb INHALATION (16:17)
[2024-12-28 16:24] LABS: Respiratory Syncytial Virus Ce POSITIVE (Negative)
[2024-12-28 16:29] LABS: NT Pro B Type Natriuretic Pept 162 pg/mL (0-125); Procalcitonin 0.28 ng/mL (0-0.5); Thyroid Stimulating Hormone 2.56 uIU/mL (0.27-4.20); Vitamin B12 597 pg/mL (232-1245)
[2024-12-28] MEDS: acetaminophen 325 mg Tablet 650 MG PO (20:04)
[2024-12-28 20:54] LABS: Glucose Point of Care 205 mg/dL (70-110)
[2024-12-28] MEDS: insulin lispro 100 unit/1 mL SUBCUT (21:51)
[2024-12-29] VITALS (11 sets, daily range): BP systolic 98–116; BP diastolic 59–73; PULSE 63–87; RESP 16–19; TEMP 36.3–37.2; O2SAT 92–96
[2024-12-29 04:59] LABS: Basophils % 0.2 %; Eosinophils % 0.4 %; Hematocrit 38.1 % (36-47); Lymphocytes # 1.6 10^3/uL (0.8-4.8); Lymphocytes % 17.4 %; Mean Corpuscular HGB Conc 32.8 g/dL (30-55); Mean Corpuscular Hemoglobin 32.1 pg (27-33); Mean Corpuscular Volume 97.7 fl (85-98); Monocytes # 0.8 10^3/uL (0.2-0.9); Monocytes % 8.5 %; Neutrophils # 6.83 10^3/uL (1.8-7.7); Neutrophils % 73.2 %; Nucleated Red Blood Cells % 0 %; Platelet Count 149 10^3/cmm (157-399); Red Cell Distribution Width 12.8 % (12.1-15.1); White Blood Count 9.33 10^3/uL (3.29-11.43)
[2024-12-29 05:27] LABS: Blood Urea Nitrogen 13 mg/dL (8-23); Calcium 8.2 mg/dL (8.5-10.5); Carbon Dioxide 23 mmol/L (22-29); Chloride 109 mmol/L (98-107); Glucose 96 mg/dL (65-115); Magnesium 2.1 mg/dL (1.7-2.3); Osmolality Calculated 290 mOsm/kg (285-295); Sodium 140 mmol/L (136-145)
[2024-12-29 05:30] LABS: Anion Gap 11.9 (5-19); Potassium 3.9 mmol/L (3.5-5.1)
[2024-12-29 06:22] LABS: Glucose Point of Care 118 mg/dL (70-110)
[2024-12-29] MEDS: azithromycin 250 mg Tablet 500 MG PO (07:37)
[2024-12-29] MEDS: sodium chloride 0.9% 1,000 ML 75 ML IV (07:38)
[2024-12-29] MEDS: ipratropium-albuterol 3 mL Neb INHALATION ×5 (08:18→20:29)
--- NOTE | 2024-12-29 09:25 | USCV_ITS ---
Stefanie Taylor Age: 69 Gender: F : 1955 Exam Date: 12/29/2024 12:00 Ordering Phys: Mey Romo MD Technologist: Miko Palomo Exam Location: [facility] [place] Indication: syncope BP: 113 / 70 HR: 63 Rhythm: Sinus Technical Quality: Adequate MEASUREMENTS (Male / Female) Normal Values 2D ECHO LV Diastolic Diameter PLAX 4.9 cm 4.2 - 5.9 / 3.9 - 5.3 cm IVS Diastolic Thickness 1.1 cm 0.6 - 1.0 / 0.6 - 0.9 cm IVS Systolic Thickness 1.3 cm LVPW Diastolic Thickness 0.9 cm 0.6 - 1.0 / 0.6 - 0.9 cm LVPW Systolic Thickness 1.4 cm LVOT Diameter 2.0 cm LV Ejection Fraction 2D Teich 75.3 % LV Ejection Fraction MOD 4C 62.5 % LV Ejection Fraction MOD 2C 66.7 % LV Ejection Fraction 2C AL 66.7 % LA Diameter 3.5 cm RA Systolic Volume 4C AL 21.0 ml RA Systolic Volume 4C MOD 21.4 ml LA Sys Volume AL 40.3 cm cubed LA Sys Volume Index AL 25.1 cm cubed/m squared Aorta at Sinotubular Diameter 2.4 cm IVC Diameter 1.7 cm M-MODE LA Ao Ratio MM 1.5 AV Cusp Separation MM 1.6 cm DOPPLER AV Peak Velocity 198.7 cm/s LVOT Peak Velocity 93.0 cm/s AV Area Cont Eq vti 1.8 cm squared AV Area Cont Eq pk 1.5 cm squared MV Peak Velocity 87.0 cm/s MV Area PHT 4.1 cm squared Mitral E to A Ratio 1.3 TV Peak Velocity 172.0 cm/s TR Peak Velocity 254.0 cm/s TR Peak Gradient 25.8 mmHg TR Mean Velocity 211.0 cm/s TR Mean Gradient 19.0 mmHg TR Velocity Time Integral 84.6 cm PV Peak Velocity 69.0 cm/s RV Ejection Time 0.3 s FINDINGS Left Ventricle Normal left ventricular size, systolic function and wall thickness, with no regional wall motion abnormalities. Estimated LVEF normal 65%. Right Ventricle Normal right ventricular size and systolic function. Right Atrium Normal right atrial size. Left Atrium Normal left atrial size. Mitral Valve Mildly thickened mitral valve. Mild mitral valve regurgitation. Aortic Valve Thickened aortic valve. No significant stenosis. Trace aortic valve regurgitation. Tricuspid Valve Structurally normal tricuspid valve. Trace tricuspid valve regurgitation. Pulmonic Valve Pulmonic valve not well visualized. Mild pulmonary valve regurgitation. Pericardium No pericardial effusion. Aorta Normal size aortic root and proximal ascending aorta. IVC Normal inferior vena cava. CONCLUSIONS Normal left ventricle systolic function. Normal LVEF 65%. Normal chamber sizes. Mild mitral regurgitation with eccentric jet Normal RV systolic function Normal RV and pulmonary pressures. Kamilla Mccormick MD (Electronically Signed) Final Date: 29 December 2024 14:01 S
[2024-12-29 11:49] LABS: Glucose Point of Care 146 mg/dL (70-110)
--- NOTE | 2024-12-29 13:53 | P.PN_ITS ---
Subjective 2 Subjective: seen today pt feeling better Vitals/I&O/Wt Last Vital Signs Temp 98.0 F 12/29/24 12:00 Pulse 68 12/29/24 12:44 Resp 18 12/29/24 12:44 BP 113/66 12/29/24 12:00 Pulse Ox 93 12/29/24 12:44 O2 Del Method Room Air 12/29/24 12:44 12/28/24 12/29/24 12/29/24 22:59 06:59 14:59 Intake Total 666.25 / 1666.25 360 / 2025. 1723.75 / 1723.75 Balance 666.25 / 1666.25 360 / 2025. 1723.75 / 1723.75 Weight last 48 hrs Weight 58.786 kg Weight 57.788 kg Weight 57.606 kg Physical Exam 2 Narrative: General: Alert oriented x3, patient seen laying in bed coughing at this time. HEENT: Normocephalic, atraumatic, EOMI, breathing room air. Cardio: Regular rate rhythm, normal S1-S2, Respiratory:minimal ronchi b/l lung navarro, improving since yesterday GI: Abdomen soft, nontender, bowel sounds + Behavior: Appropriate and cooperative Extremities: No edema bilateral lower extremity Data 12/29/24 04:16 12/29/24 04:16 Micro: Microbiology 12/29/24 10:40 Legionella Urinary Antigen - Final Urine,Voided 12/28/24 14:08 Urine Culture - Preliminary Urine,Voided 12/28/24 15:46 Blood Culture - Preliminary Blood SPECIMEN COLLECTED 12/28/24 15:41 Blood Culture - Preliminary Blood SPECIMEN COLLECTED A&P Assessment and plan (1) Pneumonia: (2) Syncope: (3) Weakness: (4) RSV (acute bronchiolitis due to respiratory syncytial virus): (5) Fall: (6) Dizziness: (7) Cough: (8) Frail elderly: (9) Dehydration: (10) Right upper lobe pneumonia: (11) Diabetes: (12) Type 2 diabetes mellitus: (13) Non-insulin dependent diabetes mellitus: (14) Goals of care, counseling/discussion: (15) Leukocytosis: Plan #RSV respiratory infection #Cough shortness of breath secondary to above #Pneumonia probably viral versus bacterial /right upper lobe pneumonia #Diabetes mellitus #Fall/syncope/lightheadedness/dizziness ? Patient noted to be positive for RSV on admission. Will provide supportive care. She appears dehydrated. Will order IV fluid at 75 cc/h normal saline ? CT head, cervical spine CT negative for acute pathology. ? Chest abdomen CT pelvis shows aneurysmal ascending thoracic aorta measuring 3.7 cm. ? Small focal infiltrate in right upper lobe anteriorly retrosternal likely infectious inflammatory. ? Placed on ceftriaxone, azithromycin ? DuoNeb every 6 hours scheduled ? Incentive spirometer, flutter valve to be ordered ? Urinalysis negative ? Steroids are controversial and generally not recommended in RSV infections we will hold off unless patient is hypoxic. -Will check CRP, ESR ? Check bacterial antigen strep and Legionella ? Check BNP ? Check procalcitonin ? Hold home glimepiride, metformin, Farxiga. ? Low-dose intensity sliding scale insulin to be ordered. ? Carbohydrate consistent diet ? Patient appeared dehydrated at time of admission. Possibly had a vasovagal episode after using the bathroom and was already lightheaded to begin with. CT head negative. Will check orthostatic vitals. ? Check PT OT Full code Due to prophylaxis Lovenox 40 daily 12/29/2024 seen today pt is improving, positive for RSV continue to monitor today and continue IS, and flutter valve, if does better overnight, plan to dc home in am awaiting PT PDMP PDMP Reviewed: Not Reviewed Attestations 2 Medical Necessity Statement*: Greater than 2 midnight stay for RSV respiratory infection/viral pneumonia Diagnoses Pneumonia J18.9 Syncope R55 Weakness R53.1 RSV (acute bronchiolitis due to respiratory syncytial virus) J21.0 Fall W19.XXXA Dizziness R42 Cough R05.9 Frail elderly R54 Dehydration E86.0 Right upper lobe pneumonia J18.9 Diabetes E11.9 Type 2 diabetes mellitus E11.9 Non-insulin dependent diabetes mellitus Goals of care, counseling/discussion Z71.89 Leukocytosis D72.829
--- NOTE | 2024-12-29 14:28 | PC.SOCIAL ---
IMM updated IMM dated and initialed, Copy given to patient and copy placed in chart.
[2024-12-29] MEDS: enoxaparin 40 mg/0.4 mL Syringe SUBCUT (14:43)
[2024-12-29] MEDS: cefTRIAXone 1,000 mg SDV 1000 MG IVP (14:43)
[2024-12-29 16:33] LABS: Glucose Point of Care 163 mg/dL (70-110)
[2024-12-29] MEDS: insulin lispro 100 unit/1 mL SUBCUT ×2 (17:21→21:26)
[2024-12-29 20:34] LABS: Glucose Point of Care 200 mg/dL (70-110)
[2024-12-30 03:58] LABS: Basophils % 0.3 %; Eosinophils # 0.1 10^3/uL (0.0-0.8); Eosinophils % 1.2 %; Hematocrit 36.3 % (36-47); Lymphocytes # 1.4 10^3/uL (0.8-4.8); Lymphocytes % 21.6 %; Mean Corpuscular HGB Conc 33.1 g/dL (30-55); Mean Corpuscular Hemoglobin 32.5 pg (27-33); Mean Corpuscular Volume 98.4 fl (85-98); Mean Platelet Volume 11.9 fL (7.4-10.4); Monocytes # 0.7 10^3/uL (0.2-0.9); Monocytes % 10.3 %; Neutrophils # 4.42 10^3/uL (1.8-7.7); Neutrophils % 66.3 %; Nucleated Red Blood Cells % 0 %; Platelet Count 123 10^3/cmm (157-399); Red Blood Count 3.69 10^6/uL (3.85-5.65); Red Cell Distribution Width 12.7 % (12.1-15.1); White Blood Count 6.67 10^3/uL (3.29-11.43)
[2024-12-30 04:00] VITALS: BP 128/79; PULSE 63; RESP 16; TEMP 36.7; O2SAT 95
[2024-12-30 04:01] LABS: Slide Review Slide Review Perform
[2024-12-30 04:23] LABS: Blood Urea Nitrogen 16 mg/dL (8-23); Calcium 8.2 mg/dL (8.5-10.5); Carbon Dioxide 24 mmol/L (22-29); Chloride 107 mmol/L (98-107); Glucose 95 mg/dL (65-115); Osmolality Calculated 289 mOsm/kg (285-295); Sodium 139 mmol/L (136-145)
[2024-12-30 04:36] LABS: Anion Gap 12.2 (5-19); Potassium 4.2 mmol/L (3.5-5.1)
[2024-12-30 06:34] LABS: Glucose Point of Care 125 mg/dL (70-110)
[2024-12-30 08:00] VITALS: BP 135/77; PULSE 71; RESP 17; TEMP 36.6; O2SAT 92
[2024-12-30] MEDS: azithromycin 250 mg Tablet 500 MG PO (08:29)
[2024-12-30 09:00] VITALS: PULSE 88; RESP 18; O2SAT 99
[2024-12-30] MEDS: ipratropium-albuterol 3 mL Neb INHALATION (09:02)
--- NOTE | 2024-12-30 09:27 | PM.DCS ---
Discharge Providers Date of Admission: 12/28/24 17:14 Date of Discharge: December 30, 2024 Attending Provider at Admission: Mey Romo MD Attending Provider at Discharge: Mey Rmoo MD Primary Care Provider: WILIAN Thorpe Diagnoses at Discharge Discharge Diagnosis (1) Pneumonia: Status: Acute (2) Syncope: Status: Resolved (3) Weakness: Status: Resolved (4) RSV (acute bronchiolitis due to respiratory syncytial virus): Status: Acute (5) Fall: Status: Resolved (6) Dizziness: Status: Resolved (7) Cough: Status: Acute (8) Frail elderly: Status: Acute (9) Dehydration: Status: Resolved (10) Right upper lobe pneumonia: Status: Acute (11) Diabetes: Status: Acute (12) Type 2 diabetes mellitus: Status: Acute (13) Non-insulin dependent diabetes mellitus: Status: Acute (14) Goals of care, counseling/discussion: Status: Resolved (15) Leukocytosis: Status: Resolved Reason for Visit Reason for Visit: flu like symptoms, syncopal ep Brief History: Stefanie Taylor is a 69 year old female with history of diabetes and hyperlipidemia otherwise healthy, former smoker presented to the hospital with worsening shortness of breath. She states that she has been sick for the last 3 weeks however today when she passed out family brought her into the hospital. She states she was quite lightheaded this morning however when went to the bathroom and as she was getting off the potty she had a syncopal episode. She says she heard a loud thud and may have hit her head or hit something else. She says she was then picked up by her neighbor. She states it hurts her chest every time she coughs. She has been coughing for last 3 weeks and trying to bring up phlegm however it is just not coming out. He states I feel it is stuck in my chest. She has also been having some loose stools once a day. No increased frequency and bowel movements. She says this all started off as a head cold and then it just became worse and worse and worse . Denies abdominal pain however does report mild nausea and vomiting overnight at 3 AM. She is not requiring oxygen and is on room air at this time. Hospital Course Hospital Course Patient was admitted for shortness of breath worsening upper respiratory symptoms. She was diagnosed with RSV. Supportive care was provided along with antibiotics. She improved significantly over 48 hours and was discharged home in stable condition. She is to follow-up with her primary care doctor for further care. During hospitalization there was evidence of pneumonia on x-ray viral versus bacterial. We gave her ceftriaxone azithromycin. Physical Exam Narrative: General: Alert oriented x3, HEENT: Normocephalic, atraumatic, EOMI, breathing room air. Cardio: Regular rate rhythm, normal S1-S2, Respiratory: To auscultation bilaterally no wheezes no rhonchi. GI: Abdomen soft, nontender, bowel sounds + Behavior: Appropriate and cooperative Extremities: No edema bilateral lower extremity Discharge Data Studies Completed and Pending Completed Studies During Hospitalization Category Date Time Status CT angio chest w abd pel w con Stat Cat Scan 12/28/24 12:[address] cervical spin wo con* [id number] Stat Cat Scan 12/28/24 12:[address] head wo con* [id number] Stat Cat Scan 12/28/24 12:25 Completed XR chest 1V portable [id number] Stat Exams 12/28/24 12:14 Completed CV. echo complete* [id number] Routine Ultrasound 12/29/24 09:25 Completed Pending at discharge Category Date Time Status Blood Culture Stat Lab 12/28/24 15:46 Results Sputum Culture and Gram Stain Stat Lab 12/28/24 15:37 Uncollected Urine Culture Stat Lab 12/28/24 14:08 Results Radiology Impressions Chest X-Ray 12/28/24 12:14 Impression: Atherosclerosis and old granulomatous disease. Cervical Spine CT 12/28/24 12:25 IMPRESSION: No evidence of acute fracture or dislocation. Chest/Abdomen/Pelvis CT 12/28/24 12:25 IMPRESSION: 1. Aneurysmal ascending thoracic aorta measuring 3.7 cm. 2. Proximal main pulmonary arteries are normal. 3. Small focal infiltrate in the RIGHT upper lobe anteriorly retrosternal likely infectious or inflammatory. 4. Moderate chronic emphysematous changes with bibasilar atelectasis and fibrotic changes. 5. No acute traumatic findings in the abdomen or pelvis. 6. Urine distended bladder. 7. Prior hysterectomy. 8. Prior cholecystectomy. Head CT 12/28/24 12:25 IMPRESSION: 1. No evidence of intracranial hemorrhage or mass effect. 2. Diffuse pansinusitis with air-fluid levels. 3. No acute intracranial findings. Laboratory Results WBC 6.67 10^3/uL (3.29-11.43) 12/30/24 02:04 RBC 3.69 10^6/uL (3.85-5.65) L 12/30/24 02:04 Hgb 12.00 g/dL (11.27-16.99) 12/30/24 02:04 Hct 36.3 % (36-47) 12/30/24 02:04 MCV 98.4 fl (85-98) H 12/30/24 02:04 MCH 32.5 pg (27-33) 12/30/24 02:04 MCHC 33.1 g/dL (30-55) 12/30/24 02:04 RDW 12.7 % (12.1-15.1) 12/30/24 02:04 Plt Count 123 10^3/cmm (157-399) L 12/30/24 02:04 MPV 11.9 fL (7.4-10.4) H 12/30/24 02:04 Neut % (Auto) 66.3 % 12/30/24 02:04 Lymph % (Auto) 21.6 % 12/30/24 02:04 [facility] % (Auto) 10.3 % 12/30/24 02:04 Eos % (Auto) 1.2 % 12/30/24 02:04 Baso % (Auto) 0.3 % 12/30/24 02:04 Neut # (Auto) 4.42 10^3/uL (1.8-7.7) 12/30/24 02:04 Lymph # (Auto) 1.4 10^3/uL (0.8-4.8) 12/30/24 02:04 [facility] # (Auto) 0.7 10^3/uL (0.2-0.9) 12/30/24 02:04 Eos # (Auto) 0.1 10^3/uL (0.0-0.8) 12/30/24 02:04 Baso # (Auto) 0.0 10^3/uL (0.0-0.1) 12/30/24 02:04 Nucleated RBC % (auto) 0 % 12/30/24 02:04 Nucleated RBCs # 0.0 /100WBC 12/30/24 02:04 Sodium 139 mmol/L (136-145) 12/30/24 02:04 Potassium 4.2 mmol/L (3.5-5.1) 12/30/24 02:04 Chloride 107 mmol/L (98-107) 12/30/24 02:04 Carbon Dioxide 24 mmol/L (22-29) 12/30/24 02:04 Anion Gap 12.2 (5-19) 12/30/24 02:04 BUN 16 mg/dL (8-23) 12/30/24 02:04 Creatinine 0.6 mg/dL (0.5-0.9) 12/30/24 02:04 GFR Calculation Not Reportable 12/30/24 02:04 Glucose 95 mg/dL (65-115) 12/30/24 02:04 POC Glucose 125 mg/dL (70-110) H 12/30/24 06:27 Calculated Osmolality 289 mOsm/kg (285-295) 12/30/24 02:04 Lactic Acid 0.8 mmol/L (0.5-2.2) 12/28/24 12:25 Calcium 8.2 mg/dL (8.5-10.5) L 12/30/24 02:04 Magnesium 2.1 mg/dL (1.7-2.3) 12/29/24 04:16 Total Bilirubin 0.7 mg/dL (0.15-1.2) 12/28/24 12:25 AST 14 U/L (0-32) 12/28/24 12:25 ALT 11 U/L (0-33) 12/28/24 12:25 Alkaline Phosphatase 74 U/L (35-105) 12/28/24 12:25 NT-Pro-B Natriuret Pep 162 pg/mL (0-125) H 12/28/24 12:25 Total Protein 6.4 g/dL (6.6-8.7) L 12/28/24 12:25 Albumin 3.7 g/dL (3.5-5.2) 12/28/24 12:25 Globulin 2.7 g/dL (1.3-4.6) 12/28/24 12:25 Lipase 20 U/L (13-60) 12/28/24 12:25 Vitamin B12 597 pg/mL (232-1245) 12/28/24 12:25 Procalcitonin 0.28 ng/mL (0-0.5) 12/28/24 12:25 TSH 2.56 uIU/mL (0.27-4.20) 12/28/24 12:25 Urine Color Yellow (Yellow) 12/28/24 14:08 Urine Appearance Clear (CLEAR) 12/28/24 14:08 Urine pH 7.5 (5-7) 12/28/24 14:08 Ur Specific [place] 1.018 (1.005-1.030) 12/28/24 14:08 Urine Protein Negative (Negative) 12/28/24 14:08 Urine Glucose (UA) Negative (Normal) 12/28/24 14:08 Urine Ketones Negative (Negative) 12/28/24 14:08 Urine Blood Negative (Negative) 12/28/24 14:08 Urine Nitrate Negative (Negative) 12/28/24 14:08 Urine Bilirubin Negative (Negative) 12/28/24 14:08 Urine Urobilinogen 0.2 mg/dL (Negative) 12/28/24 14:08 Ur Leukocyte Esterase Negative (Negative) 12/28/24 14:08 Amorphous Sediment Not Reportable 12/28/24 14:08 Influenza A (PCR) Negative (Negative) 12/28/24 15:15 Influenza Type B (PCR) Negative (Negative) 12/28/24 15:15 RSV (PCR) Positive (Negative) A 12/28/24 15:15 SARS-CoV-2 (PCR) Negative (Negative) 12/28/24 15:15 Vitals Last Vital Signs Temp 97.9 F 12/30/24 08:00 Pulse 88 12/30/24 09:00 Resp 18 12/30/24 09:00 BP 135/77 12/30/24 08:00 Pulse Ox 99 12/30/24 09:00 O2 Del Method Room Air 12/30/24 09:00 Discharge Plan Discharge Patient Disposition: Home Condition: Stable Prescriptions: New azithromycin 250 mg Tablet 500 mg PO DAILY 5 Days Qty: 10 0RF cefdinir 300 mg capsule 300 mg PO BID 5 Days Qty: 10 0RF albuterol sulfate [Ventolin HFA] 90 mcg/actuation HFA aerosol inhaler 2 inh inhalation Q4H PRN (Reason: shortness of breath or wheezing) Qty: 8.5 0RF Continued metformin 500 mg tablet 500 mg PO BID glimepiride 2 mg tablet 3 mg PO DAILY pravastatin 10 mg tablet 10 mg PO DAILY dapagliflozin propanediol [Farxiga] 10 mg tablet 10 mg PO QAM Discharge Orders: Discharge Order (Routine); Ordered 12/30/24 Ordered By: Mey Romo Referrals: Ibrahima Holloway [employer] [Primary Care Provider] - 4-7 days (We have notified your physician's clinic of the need for a follow-up appointment to be scheduled. If you have not heard from them within the next 2 business days, please call them directly. SENT REFERRAL FOR APPOINTMENT) Discharge Diet: Diabetic Patient Instructions: Albuterol (By mouth), Azithromycin (By mouth), Cefdinir (By mouth), Community Acquired Pneumonia (DC), Leukocytosis (DC), Opioid Safety Discharge Attestations Time Spent in Discharge Care*: greater than 30 min Quality Metrics Clinical Quality Measures [ No reported AMI, CVA or VTE this stay] Coding Level of Care Code Acute Code for [facility] Fwd Diagnoses Pneumonia J18.9 Syncope R55 Weakness R53.1 RSV (acute bronchiolitis due to respiratory syncytial virus) J21.0 Fall W19.XXXA Dizziness R42 Cough R05.9 Frail elderly R54 Dehydration E86.0 Right upper lobe pneumonia J18.9 Diabetes E11.9 Type 2 diabetes mellitus E11.9 Non-insulin dependent diabetes mellitus Goals of care, counseling/discussion Z71.89 Leukocytosis D72.829
[2024-12-30 11:20] LABS: Glucose Point of Care 250 mg/dL (70-110)
[2024-12-30 11:49] VITALS: BP 102/59; PULSE 82; RESP 16; TEMP 36.7; O2SAT 93
[2024-12-30 12:44] VITALS: BP 102/53; PULSE 82; RESP 16; TEMP 36.7; O2SAT 93
== END 2024-12-30 14:00 | disposition home or self-care (01) ==
LOC: ER 15:55 → MEDSURG 18:21
PROVIDERS: Admitting Provider Internal Medicine; Emergency Provider Emergency Medicine; PCP Nurse Practitioner; Visit Provider Internal Medicine
DX: J18.9 Pneumonia, unspecified organism (principal); J21.0 Acute bronchiolitis due to respiratory syncytial virus; R55 Syncope and collapse; E11.9 Type 2 diabetes mellitus without complications; E78.5 Hyperlipidemia, unspecified; R54 Age-related physical debility; R11.2 Nausea with vomiting, unspecified; E86.0 Dehydration; W18.11XA Fall from or off toilet without subsequent striking against object, initial encounter; Z11.52 Encounter for screening for COVID-19; Z79.899 Other long term (current) drug therapy; Z79.84 Long term (current) use of oral hypoglycemic drugs; Z88.5 Allergy status to narcotic agent; Z87.891 Personal history of nicotine dependence
CPT/HCPCS: 36415; 36416; 70450; 71045; 71275; 72125; 74177; 80048; 80053; 81003; 82607; 82962; 83605; 83690; 83735; 83880; 84145; 84443; 85025; 86403; 87040; 87086; 87449; 87637; 93005; 93306; 94640; 96365; 96372; 96375; 97161; 97165; 99285; G0378; J0456; J0696; J1650; J1815; J7030; J7050; Q0144